=== PATIENT | male | born 1950 | race African-American/Black ===

== ENCOUNTER 2020-02-14 01:35 | Emergency (ER) | payer BC ==
[~2020-02-14] VITALS: Ht 177.8 cm; Wt 93.0 kg
[2020-02-14] MEDS ORDERED: AUGMENTIN 875-1 EAC1 ORAL (01:37)
[2020-02-14 01:40] VITALS: BP 164/91
--- NOTE | 2020-02-14 01:40 | NUR ---
ED Nurse Note: pt ambulated into ed from home co being bitten by a rat at right thumb. no bleeding noted. last tetanus shot unknown at this time. pt aao x 4, ambulates with steady gait. vss no ss of distress noted. ERMD at bedside. will continue to monitor. awaiting further orders.
--- NOTE | 2020-02-14 01:40 | NUR ---
ED Nurse Note: Patient walked into the ED from home after being bitten by a rat at right hand thumb onset a few minutes ago. No bleeding/ swelling noted. Last tetanus shot unk. Denies N/V, fever and chills. Site washed and cleaned. ERMD seen patient
--- NOTE | 2020-02-14 01:44 | Emergency Room Report ---
History of Present Illness General Chief Complaint: To Be Triaged Present Illness HPI 69-year-old male with no relevant past medical history here with a rat bite to his right hand. Just prior to come to the emergency department patient was cleaning out he has home and try to grab a rat that he found. The rat bit him once in the right hand on the flexor surface of his right thumb. There was no bleeding however there was a puncture wound and the patient cleaned the wound thoroughly with water and hydrogen peroxide and soap. He is unaware of what his last tetanus shot was. Allergies: Coded Allergies: No Known Allergies (Unverified , 02/14/20) Review of Systems All Other Systems: negative except mentioned in HPI Physical Exam Sp02 EP Interpretation: reviewed, normal General Appearance: no apparent distress, alert, non-toxic Head: normocephalic, atraumatic Eyes: bilateral eye normal inspection, bilateral eye PERRL ENT: hearing grossly normal, normal pharynx, no angioedema, normal voice Neck: full range of motion, supple/symm/no masses Respiratory: normal breath sounds, no wheezing, speaking full sentences Cardiovascular #1: regular rate, rhythm, no edema Cardiovascular #2: 2+ carotid (R), 2+ carotid (L), 2+ radial (R), 2+ radial (L), 2+ dorsalis pedis (R), 2+ dorsalis pedis (L) Gastrointestinal: normal bowel sounds, non tender, soft, non-distended, no guarding, no rebound Rectal: deferred Genitourinary: normal inspection, no CVA tenderness Musculoskeletal: back normal, normal range of motion, gait/station normal, non- tender, other - Very small singular puncture wound on the flexor surface of the distal right thumb. Neurovascular intact Neurologic: alert, motor strength/tone normal, oriented x3, sensory intact, responsive, speech normal Psychiatric: judgement/insight normal, memory normal, mood/affect normal, no suicidal/homicidal ideation Lymphatic: no adenopathy Medical Decision Making Diagnostic Impression: Primary Impression: Rat bite ER Course 69-year-old male here with a single rat bite to his right thumb. There is no active bleeding and the wound was clean. Patient's tetanus was updated in the emergency department. He was given a prescription for Augmentin to take for 1 week. CDC does not recommend tetanus prophylaxis for rat bites. Patient was told to come back to the emergency department with worsening symptoms. Discharged in stable condition. Disposition: HOME, SELF-CARE Condition: Stable Scripts Amoxicillin/Potassium Clav 875-125* (AUGMENTIN 875-125 TABLET*) 1 Each Tablet 1 TAB ORAL TWICE A DAY, #14 TAB Prov: Abilio Solis M.D. 02/14/20 Referrals: [facility] Patient Instructions: Animal Bite Abilio Solis M.D. Feb 14, 2020 01:44
[2020-02-14] MEDS ORDERED: Tetanus/Diptheria/Pertussis IM ONE (01:45)
--- NOTE | 2020-02-14 01:46 | NUR ---
ED Nurse Note: all medications administered, pt tolerated well no ss of distress noted. will continue to monitor.
[2020-02-14 01:50] VITALS: BP 147/86
--- NOTE | 2020-02-14 01:50 | NUR ---
ER DISCHARGE NOTE: Patient is cleared to be discharged home per ERMD, pt is aox4, 98% on room air, with stable vital signs. pt was given dc and prescription instructions, pt was able to verbalize understanding, pt id band removed without complications. pt is able to ambulate with steady gait. pt took all belongings.
== END 2020-02-14 02:06 | disposition home or self-care (01) ==
LOC: EMR 01:55
DX: S61.051A Open bite of right thumb without damage to nail, initial encounter (principal); Z23 Encounter for immunization; W53.11XA Bitten by rat, initial encounter; Y92.9 Unspecified place or not applicable
CPT/HCPCS: 90471; 90715; 99282